=== PATIENT | female | born 1970 | race Caucasian/White ===

== ENCOUNTER 2019-03-19 09:22 | Outpatient (REF) | payer MEDICAID, SELFPAY ==
[2019-03-19 19:15] LABS: Calculated LDL 112; Cholesterol 200 mg/dL (50-200); Glucose 89 mg/dL (70-100); HDL Cholesterol 82 mg/dL (40-60); Triglyceride 30 mg/dL (30-150)
== END 2019-03-19 09:42 ==
LOC: NCHCN 09:22
PROVIDERS: PCP Nurse Practitioner Family; Visit Provider Nurse Practitioner Family
DX: Z13.220 Encounter for screening for lipoid disorders (principal); Z13.1 Encounter for screening for diabetes mellitus
CPT/HCPCS: 80061; 82947; 83721

== ENCOUNTER 2019-09-17 12:51 | Outpatient (REF) | payer MEDICAID, SELFPAY ==
--- NOTE | 2019-09-17 11:55 | SKI_PTH ---
PATIENT: EREN DAMIAN LOC: [facility] U#:[id number] AGE/SX: 48/F ROOM: RE09/17/[address]: Josefina Vences MD : 1970 BED: DIS: 09/17/2019 SPEC #: [id number] RECD: 09/17/19 12:59 STATUS: AMADOU REBrock #: [id number] SOUTH: 09/17/19 11:[address]: Josefina Vences DEPT: Surgical Specimen RECD BY: Angelia Nails ENTERED: 09/17/19 12:59 SP TYPE: BLAIR LEPE DR: Jessica Dutton Tissues: 1 - SKIN BIOPSY(SHAVE/PUNCH) Procedures: SKIN LEVEL 4 Comments: [id number]
== END 2019-09-17 13:11 ==
LOC: LBN 12:51
PROVIDERS: PCP Nurse Practitioner Family; Visit Provider Surgery
DX: L98.0 Pyogenic granuloma (principal)
CPT/HCPCS: 88305